=== PATIENT | male | born 2005 | race Caucasian/White ===

== ENCOUNTER 2023-12-08 16:25 | Outpatient (CLI) | payer BC, SELFPAY ==
[2023-12-08 15:17] LABS: CRP < 0.5 mg/dL (<1.0)
[2023-12-08 15:53] LABS: Erythrocyte Sedimentation Rate 5 mm/hr (0-20)
[2023-12-08 18:17] LABS: Toxigenic C. Diff NEGATIVE (NEGATIVE)
[2023-12-09 11:24] LABS: H pylori Ag Stool RESULT: Not Detected
[2023-12-12 16:39] LABS: Immunoglobulin A 122 mg/dL (47-310); TTG IGA AB <1.0 U/mL
[2023-12-13 21:44] LABS: Fecal Fat, Ql Normal (Normal)
[2023-12-14 16:31] LABS: Concentrate Ova and Parasites No Ova or Parasites
[2023-12-14 16:36] LABS: Trichrome Ova and Parasites No Ova or Parasites
[2023-12-16 18:33] LABS: Pancreatic Elastase, Stool >500 mcg/g
[2023-12-17 21:48] LABS: Calprotectin, Stool 7 mcg/g
== END 2023-12-08 16:26 | disposition home or self-care (01) ==
LOC: ANHLAB 16:25
PROVIDERS: Visit Provider Nurse Practitioner Family
DX: K52.9 Noninfective gastroenteritis and colitis, unspecified (principal); Z86.19 Personal history of other infectious and parasitic diseases
CPT/HCPCS: 36415; 82653; 82705; 82784; 83993; 85652; 86140; 86364; 87045; 87177; 87209; 87269; 87338; 87427; 87449; 87493

== ENCOUNTER 2023-12-23 11:07 | Emergency (ER) | payer BC, SELFPAY ==
--- NOTE | ~2023-12-23 | XR_ITS ---
EXAMINATION: XR chest 2V 12/23/2023 12:16 INDICATION: Chest pain PROCEDURE: 2 view chest COMPARISON: No prior studies for comparison. FINDINGS: The lungs are clear. The cardiomediastinal silhouette is within normal limits. There are no pleural effusions. There is no pneumothorax suspected. IMPRESSION: 1: NO ACUTE CARDIOPULMONARY DISEASE. Reviewed, dictated and finalized at location B.
--- NOTE | 2023-12-23 11:09 | ECG_ITS ---
Test Date: 2023-12-23 11:13:54 Measurements Intervals [place] Rate: 81 P: 74 SD: 159 QRS: 55 QRSD: 85 T: 28 QT: 351 QTc: 408 Interpretive Statements SINUS RHYTHM NONSPECIFIC ST & T-WAVE ABNORMALITY- INF/LAT LEADS BASELINE ARTIFACT- I, II, AVR, AVL BORDERLINE ECG No previous ECG available for comparison Electronically Signed On 12-23-2023 11:19:38 CDT by Tee Samaniego D.O.
[2023-12-23 11:25] VITALS: BP 135/79; PULSE 76; RESP 16; TEMP 37; O2SAT 100
[2023-12-23 11:46] LABS: Basophils Percent Auto 0.4 % (0.2-1.2); Eosinophils Absolute Auto 0.1 K/mm3 (0-0.3); Eosinophils Percent Auto 1.3 % (0-4.4); Hematocrit 45.1 % (42.0-52.0); Hemoglobin 16.3 g/dL (14.0-18.0); Immature Granulocyte Absolute 0.01 K/mm3 (0.00-0.031); Immature Granulocyte Percent A 0.2 % (0-0.5); Lymphocytes Absolute Auto 1.41 K/mm3 (0.9-3.2); Lymphocytes Percent Auto 25.7 % (18.3-44.2); Mean Corpuscular HGB Conc 36.1 g/dl (32-36); Mean Corpuscular Hemoglobin 30.9 pg (26-34); Mean Corpuscular Volume 85.6 fl (80-100); Mean Platelet Volume 8.6 fl (7.4-10.4); Monocytes Absolute Auto 0.4 K/mm3 (0.1-0.6); Monocytes Percent Auto 7.3 % (2.6-8.5); Neutrophils Absolute Auto 3.6 K/mm3 (1.3-6.7); Neutrophils Percent Auto 65.1 % (45.5-73.1); Platelet Count Result 288 k/mm3 (150-375); Red Blood Count 5.27 M/mm3 (4.6-6.20); Red Cell Distribution Width 11.3 % (11.5-14.5); White Blood Count 5.5 K/mm3 (4.5-10.0)
[2023-12-23 12:05] LABS: Partial Thromboplastin Time 27.1 Seconds (22.3-36.8)
[2023-12-23 12:19] LABS: Alanine Aminotransferase 26 U/L (6-50); Alkaline Phosphatase 77 U/L (38-126); Anion Gap 13 mmol/L (4-12); Aspartate Amino Transferase 26 U/L (17-59); Blood Urea Nitrogen 14 mg/dL (9-20); Calcium 9.7 mg/dL (8.4-10.2); Carbon Dioxide 23 mmol/L (22-30); Chloride 103 mmol/L (98-107); Estimated CRCL calculation 111 ml/min; Estimated Glomerular Filt Rate > 60; Glucose 90 mg/dL (65-110); Lipase 64 U/L (23-300); Potassium 4.1 mmol/L (3.4-5.0); Sodium 139 mmol/L (137-145)
[2023-12-23 12:31] LABS: Troponin I < 0.012 ng/mL (0.000-0.034)
--- NOTE | 2023-12-23 14:20 | ED.CHESTPAIN ---
HPI - Chest Pain General Chief Complaint: Chest Pain <Renettaelisa Riley APRN - Last Filed: 12/23/23 14:26> Stated Complaint: chest pain <Renetta Lopez Riley APRN - Last Filed: 12/23/23 14:26> Time Seen by Provider: 12/23/23 14:10 <Renettaelisa Riley APRN - Last Filed: 12/23/23 14:26> Focused HPI: Patient is a 18-year-old male who presents to the ER with chest pain that started last night. He reports has not done any strenuous or new physical activity in the last couple of days. Patient denies shortness of breath. He reports the pain comes and goes in waves. Patient has a history of nausea, vomiting and diarrhea for which he has seen GI. He reports the last couple of days his food has not been sitting right but did not experience chest pain until last night. Patient denies any other pertinent medical history. He denies any other symptoms of illness. GENERAL: Well-appearing, well-nourished, and in no acute distress. HEAD: Normocephalic, atraumatic. CHEST: Clear to auscultation. ?No respiratory distress. HEART: Regular rate and rhythm.? NEURO: ?Alert and oriented x3. Patient screened in triage and initial orders placed.? ?Additional care and disposition to be based upon?diagnostic testing and treatment. <Renettaelisa Riley APRN - Last Filed: 12/23/23 14:26> Related Data Allergies/Adverse Reactions: Allergies Allergy/AdvReac Type Severity Reaction Status Date / Time No Known Allergies Allergy Verified 12/23/23 17:38 <Renetta Riley APRN - Last Filed: 12/23/23 14:26> Review of Systems Review of Systems: All systems as dictated in HPI <Raheem Washburn PA-C - Last Filed: 12/23/23 18:18> PMFSH Past Medical History Medical History: Medical History (Updated 12/23/23 @ 17:53 by Raheem Washburn PA-C) Chronic diarrhea History of Helicobacter pylori infection Nausea and vomiting <Renetta Riley APRN - Last Filed: 12/23/23 14:26> Social History Social History: Social History Smoking status: Never smoker <Renetta Riley, KLEVER - Last Filed: 12/23/23 14:26> Exam Narrative: GENERAL: Well-appearing, well-nourished, and in no acute distress. HEAD: Normocephalic, atraumatic. EYES: PERRLA and EOMI. ENT: Nares clear, no rhinorrhea or epistaxis. Mucous membranes moist. Oropharynx without tonsillar hypertrophy exudate or other lesions. NECK: Supple. No adenopathy or masses. CHEST: No respiratory distress. Clear to auscultation. No wheezes rales or rhonchi HEART: Regular rate and rhythm. No murmur heard. Normal peripheral pulses. ABDOMEN: Soft, nontender, nondistended, normal active bowel sounds. MSK: Normal range of motion. No edema. SKIN: Warm, dry, no rash. NEURO: Alert and oriented x4. No focal deficits. PSYCH: Normal mood and affect. <Raheem Washburn PA-C - Last Filed: 12/23/23 18:18> Course Vital Signs Vital signs: Vital Signs Temperature 98.6 F 12/23/23 11:25 Pulse Rate 76 12/23/23 11:25 Respiratory Rate 16 12/23/23 11:25 Blood Pressure 135/79 12/23/23 11:25 Pulse Oximetry 100 12/23/23 11:25 Oxygen Delivery Room Air 12/23/23 11:25 Temperature 98.6 F 12/23/23 11:25 Pulse Rate 76 12/23/23 11:25 Respiratory Rate 16 12/23/23 11:25 Blood Pressure 135/79 12/23/23 11:25 Pulse Oximetry 100 12/23/23 11:25 Oxygen Delivery Room Air 12/23/23 11:25 <Renetta Riley, KLEVER - Last Filed: 12/23/23 14:26> Vital Signs Temperature 98.6 F 12/23/23 11:25 Pulse Rate 76 12/23/23 11:25 Respiratory Rate 16 12/23/23 11:25 Blood Pressure 135/79 12/23/23 11:25 Pulse Oximetry 100 12/23/23 11:25 Oxygen Delivery Room Air 12/23/23 11:25 Temperature 98.6 F 12/23/23 11:25 Pulse Rate 76 12/23/23 11:25 Respiratory Rate 16 12/23/23 11:25 Blood Pressure 135/79 12/23/23 11:25 Pulse Oximetry 100 12/23/23 11
[2023-12-23 15:31] LABS: D Dimer < 0.27 ug/mL (<0.48)
[2023-12-23 15:31] LABS: Troponin I < 0.012 ng/mL (0.000-0.034)
--- NOTE | 2023-12-23 17:31 | ECG_ITS ---
Test Date: 2023-12-23 17:35:33 Measurements Intervals [place] Rate: 72 P: 17 NV: 144 QRS: 44 QRSD: 89 T: 22 QT: 385 QTc: 423 Interpretive Statements SINUS RHYTHM NORMAL ECG Compared to ECG 12/23/2023 11:13:54 NO SIGNIFICANT CHANGE Electronically Signed On 12-23-2023 20:10:23 CDT by Tee Samaniego D.O.
[2023-12-23] MEDS: BELLADONNA ALK/PHENOB ELIX 10 ML, MAG HYDROX/ALUMINUM HYD/SIMETH 30 ML, LIDOCAINE HCL 2... PO (17:39)
[2023-12-23 17:42] VITALS: BP 140/77; PULSE 88; RESP 13; TEMP 36.6; O2SAT 100
[2023-12-23 17:44] VITALS: O2SAT 100
[2023-12-23 18:01] LABS: Troponin I < 0.012 ng/mL (0.000-0.034)
== END 2023-12-23 18:35 | disposition home or self-care (01) ==
PROVIDERS: Preventive Medicine Aerospace Medicine; Registered Nurse; Emergency Provider Physician Assistant
DX: R07.89 Other chest pain (principal); R94.31 Abnormal electrocardiogram [ECG] [EKG]
CPT/HCPCS: 36415; 71046; 80053; 83690; 84484; 85025; 85380; 85610; 85730; 93005; 99284; A9270